=== PATIENT | male | born 1990 | race Caucasian/White ===

== ENCOUNTER 2016-09-12 02:00 | Emergency (ER) | payer MEDICARE ==
[2016-09-12 02:08] VITALS: BP 118/70; PULSE 83; O2SAT 99
[2016-09-12] MEDS ORDERED: MOTRIN 600 MG PO ONE (02:21)
[2016-09-12] MEDS ORDERED: MOTRIN 600 MG ONE (02:26)
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
== END 2016-09-12 03:22 | disposition home or self-care (01) ==
LOC: ED 02:00
DX: S80.01XA Contusion of right knee, initial encounter (principal); V89.2XXA Person injured in unspecified motor-vehicle accident, traffic, initial encounter; M25.561 Pain in right knee; R20.0 Anesthesia of skin
CPT/HCPCS: 73562; 99284; A9270-GY

== ENCOUNTER 2019-07-08 11:05 | Emergency (ER) | payer MEDICARE ==
[2019-07-08 11:37] VITALS: BP 119/79; PULSE 106; O2SAT 97
[2019-07-08] MEDS ORDERED: Rocephin 1000 MG INJ IM ONE (11:41)
--- NOTE | 2019-07-08 11:41 | ERPHSYRPT ---
- History of Present Illness Time Seen by Provider: 07/08/19 11:39 Source: patient Exam Limitations: no limitations Patient Subjective Stated Complaint: was walking down street in [place] and a dog came up to him and was barking and then bit his left lower leg. states the dog belongs to a neighbor and he is unsure if it has had its rabies shots. patient is unwilling at this time to give the dog owners name. Triage Nursing Assessment: ambulated to room per self. skin w/d, color normal. has three puncture wounds to posterior lower left leg. no bleeding noted at this time. Physician History: was walking down street in [place] and a dog came up to him and was barking and then bit his left lower leg. states the dog belongs to a neighbor and he is unsure if it has had its rabies shots. patient is unwilling at this time to give the dog owners name. Timing/Duration: today Severity: mild Associated Symptoms: denies symptoms Allergies/Adverse Reactions: No Known Drug Allergies Allergy (Verified 07/08/19 11:38) Hx Tetanus, Diphtheria Vaccination/Date Given: Yes Hx Influenza Vaccination/Date Given: No Hx Pneumococcal Vaccination/Date Given: No - Review of Systems Constitutional: No Fever, No Chills Eyes: No Symptoms Ears, Nose, & Throat: No Symptoms Respiratory: No Cough, No Dyspnea Cardiac: No Chest Pain, No Edema, No Syncope Abdominal/Gastrointestinal: No Abdominal Pain, No Nausea, No Vomiting, No Diarrhea Genitourinary Symptoms: No Dysuria Musculoskeletal: No Back Pain, No Neck Pain Skin: Other (three prongs of dog bite), No Rash Neurological: No Dizziness, No Focal Weakness, No Sensory Changes Psychological: No Symptoms Endocrine: No Symptoms All Other Systems: Reviewed and Negative - Past Medical History Pertinent Past Medical History: Yes Neurological History: Other ENT History: No Pertinent History Cardiac History: No Pertinent History Respiratory History: No Pertinent History Endocrine Medical History: No Pertinent History Musculoskeletal History: No Pertinent History GI Medical History: No Pertinent History History: No Pertinent History Psycho-Social History: Bipolar, Depression, Other Other Medical History: Hydrocephalus - Past Surgical History Past Surgical History: Yes Neuro Surgical History: No Pertinent History Cardiac: No Pertinent History Respiratory: No Pertinent History Gastrointestinal: No Pertinent History Genitourinary: No Pertinent History Musculoskeletal: Orthopedic Surgery Male Surgical History: No Pertinent History - Social History Smoking Status: Never smoker Exposure to second hand smoke: No Drug Use: none Patient Lives Alone: No Significant Family History: no pertinent family hx - Nursing Vital Signs Nursing Vital Signs: Initial Vital Signs Temperature 98.5 F 07/08/19 11:12 Pulse Rate 106 H 07/08/19 11:12 Respiratory Rate 16 07/08/19 11:12 Blood Pressure 119/79 07/08/19 11:12 O2 Sat by Pulse Oximetry 97 07/08/19 11:12 Pain Scale Pain Intensity 0 - Physical Exam General Appearance: no apparent distress, alert Eye Exam: PERRL/EOMI, eyes nml inspection Ears, Nose, Throat Exam: normal ENT inspection, TMs normal, pharynx normal, moist mucous membranes Neck Exam: normal inspection, non-tender, supple, full range of motion Respiratory Exam: normal breath sounds, lungs clear, No respiratory distress Cardiovascular Exam: regular rate/rhythm, normal heart sounds, normal peripheral pulses Gastrointestinal/Abdomen Exam: soft, normal bowel sounds, No tenderness, No mass Back Exam: normal inspection, normal range of motion, No CVA tenderness, No vertebral tenderness Extremity Exam: normal inspection, normal range of motion, pelvis stable Neurologic Exam: alert, oriented x 3, cooperative, normal mood/affect, nml cerebellar function, nml station & gait, sensation nml, No motor deficits Skin Exam: normal color, warm, dry, No rash Lymphatic Exam: No adenopathy SpO2: 97 - Course Nursing assessment & vital signs reviewed: Yes - Progress Progress: unchanged Counseled pt/family regarding: diagnosis, need for follow-up - Departure Departure Disposition: Home Clinical Impression: Dog bite of left calf Qualifiers: Encounter type: initial encounter Qualified Code(s): S81.852A - Open bite, left lower leg, initial encounter; W54.0XXA - Bitten by dog, initial encounter Condition: Stable Critical Care Time: No Referrals: SILVINO KITCHEN MD [Primary Care Provider] - Instructions: Animal Bites (DC) Additional Instructions: Discharge/Care Plan GLENNA SOLO JR YURI was seen on 07/08/19 in the Emergency Room. The patient was counseled regarding Diagnosis,Lab results, Imaging studies, need for follow up and when to return to the Emergency Room. Prescriptions given: Discharge Note I have spoken with the patient and/or caregivers. I have explained the patient' s condition, diagnosis and treatment plan based on the information available to me at this time. I have answered the patient's and/or caregiver's questions and addressed any concerns. The patient and/or caregivers have as good understanding of the patient's diagnosis, condition and treatment plan as can be expected at this point. The vital signs have been stable. The patient's condition is stable and appropriate for discharge from the emergency department. The patient will pursue further outpatient evaluation with the primary care physician or other designated or consulting physician as outlined in the discharge instructions. The patient and/or caregivers are agreeable to this plan of care and follow-up instructions have been explained in detail. The patient and/or caregivers have received these instruction. The patient/and or caregivers are aware that any significant change in condition or worsening of symptoms should prompt an immediate return to this or the closest emergency department or call 911. Prescriptions: Doxycycline Hyclate 100 mg PO BID #20 tablet
[2019-07-08] MEDS ORDERED: Rocephin 1000 MG INJ ONE (11:53)
[2019-07-08] MEDS ORDERED: XYLOCAINE 1% HCL 20 ML MDV ONE (11:53)
== END 2019-07-08 12:22 | disposition home or self-care (01) ==
LOC: ED 11:05
DX: S81.852A Open bite, left lower leg, initial encounter (principal); W54.0XXA Bitten by dog, initial encounter
CPT/HCPCS: 96372; 99283; J0696

== ENCOUNTER 2021-05-07 21:30 | Emergency (ER) | payer MEDICARE ==
[2021-05-07] MEDS ORDERED: DECADRON 10MG INJ. PO ONE (21:43)
[2021-05-07] MEDS ORDERED: DUONEB 0.5-3 MG/3 ml Neb IH ONE ×2 (21:44→21:49)
[2021-05-07] MEDS ORDERED: DECADRON 10MG INJ. ONE (21:47)
--- NOTE | 2021-05-07 21:59 | ERPHSYRPT ---
- History of Present Illness Time Seen by Provider: 05/07/21 21:40 Source: patient Exam Limitations: no limitations Patient Subjective Stated Complaint: " I have had a cough for the past 3 days, I think I have a fever too. My friend coughed in my face the other day so I'm not sure if I have Covid or not". Triage Nursing Assessment: Pt presents to ER with complaints of cough x 3 days. States cough is dry and intermittent. States believes he has a fever, pt is afebrile at this time. Also complains of runny nose. Pt skin is pink, warm, and dry. Pt respirations are unlabored at this time. Denies abdominal pains, nausea, vomiting, or diarrhea. Pt states sometimes it is hard to breath, respirations are easy and unlabored at this time. Pt is alert and oriented x 3. Physician History: Patient is a 30-year-old male presents to our ED for evaluation of a dry cough and subjective fevers x3 days. Patient currently afebrile. Patient concern for possible Covid. Patient states his friend coughed in his face and thinks he may have had Covid. Patient complains of URI symptomology with rhinorrhea. Patient states she is concerned because he has not vaccinated. Patient states he is not vaccinated because he is concerned with the safety of the Covid vaccination. Patient is otherwise healthy. Patient denies past medical history. He is not using medications at all. 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 No chest pain. No nausea vomiting or diaphoresis. No rash. No diarrhea. No history of PE DVT. No leg or calf pain. Symptoms are mild in intensity. No specific worsening improving factors. Patient voices no other complaints or concerns at this time. Timing/Duration: day(s) (3 days) Severity: mild Modifying Factors: Improves With: nothing Associated Symptoms: fever (Subjective fevers.), No chills, No chest pain, No headaches, No malaise, No rash, No syncope Allergies/Adverse Reactions: No Known Drug Allergies Allergy (Verified 05/07/21 21:47) Hx Tetanus, Diphtheria Vaccination/Date Given: No Hx Influenza Vaccination/Date Given: No Hx Pneumococcal Vaccination/Date Given: No Immunizations Up to Date: No Travel Risk - International Travel Have you traveled outside of the country in past 3 weeks: No - Coronavirus Screening Symptoms: Cough: New Onset, Shortness of Breath, Headaches/Body Aches/Fatigue - Vaccine Status Have you recieved a Covid-19 vaccination: No - Review of Systems Constitutional: No Symptoms, No Fever, No Chills Eyes: No Symptoms Ears, Nose, & Throat: No Symptoms Respiratory: No Symptoms, No Cough, No Dyspnea Cardiac: No Symptoms, No Chest Pain, No Edema, No Syncope Abdominal/Gastrointestinal: No Symptoms, No Abdominal Pain, No Nausea, No Vomiting, No Diarrhea Genitourinary Symptoms: No Symptoms, No Dysuria Musculoskeletal: No Symptoms, No Back Pain, No Neck Pain Skin: No Symptoms, No Rash Neurological: No Symptoms, No Dizziness, No Focal Weakness, No Sensory Changes Psychological: No Symptoms Endocrine: No Symptoms Hematologic/Lymphatic: No Symptoms Immunological/Allergic: No Symptoms All Other Systems: Reviewed and Negative - Past Medical History Pertinent Past Medical History: Yes Neurological History: Other ENT History: No Pertinent History Cardiac History: No Pertinent History Respiratory History: No Pertinent History Endocrine Medical History: No Pertinent History Musculoskeletal History: No Pertinent History GI Medical History: No Pertinent History History: No Pertinent History Psycho-Social History: Bipolar, Depression, Other Other Medical History: Hydrocephalus - Past Surgical History Past Surgical History: Yes Neuro Surgical History: No Pertinent History Cardiac: No Pertinent History Respiratory: No Pertinent History Gastrointestinal: No Pertinent History Genitourinary: No Pertinent History Musculoskeletal: Orthopedic Surgery Male Surgical History: No Pertinent History - Social History Smoking Status: Never smoker Exposure to second hand smoke: No Drug Use: none Patient Lives Alone: Yes Significant Family History: no pertinent family hx - Nursing Vital Signs Nursing Vital Signs: Initial Vital Signs Temperature 96.5 F 05/07/21 21:37 Pulse Rate 106 H 05/07/21 21:37 Respiratory Rate 18 05/07/21 21:37 Blood Pressure 137/92 05/07/21 21:37 O2 Sat by Pulse Oximetry 98 05/07/21 21:37 Pain Scale Pain Intensity 0 - Physical Exam General Appearance: no apparent distress, alert Eye Exam: PERRL/EOMI, eyes nml inspection Ears, Nose, Throat Exam: normal ENT inspection, TMs normal, pharynx normal, moist mucous membranes, other (Rhinorrhea) Neck Exam: normal inspection, non-tender, supple, full range of motion Respiratory Exam: normal breath sounds, lungs clear, airway intact, No respiratory distress Cardiovascular Exam: regular rate/rhythm, normal heart sounds, normal peripheral pulses Gastrointestinal/Abdomen Exam: soft, normal bowel sounds, No tenderness, No mass Back Exam: normal inspection, normal range of motion, No CVA tenderness, No vertebral tenderness Extremity Exam: normal inspection, normal range of motion, pelvis stable, No skylar's sign, No pedal edema, No swelling Neurologic Exam: alert, oriented x 3, cooperative, normal mood/affect, nml cerebellar function, nml station & gait, sensation nml, No motor deficits Skin Exam: normal color, warm, dry, No rash Lymphatic Exam: No adenopathy SpO2 Interpretation: normal SpO2: 98 O2 Delivery: Room Air - Course Nursing assessment & vital signs reviewed: Yes - Radiology Exams Chest X-ray Interpretation: Interpreted by me Ordered Tests: Active Orders 24 hr Category Date Time Status CHEST 1 VIEW (PORTABLE) Stat Exams 05/07/21 21:43 Taken Respiratory Therapy Assessment DAILY RT 05/07/21 21:59 Active Medication Summary Discontinued Medications Generic Name Dose Route Start Last Admin Trade Name Nadeem PRN Reason Stop Dose Admin Albuterol/Ipratropium 3 ml 05/07/21 21:44 05/07/21 21:59 Ipratropium/Albuterol Sulfate 3 Ml Ampul.Neb IH 05/07/21 21:45 3 ml STAT ONE Administration Albuterol/Ipratropium Confirm 05/07/21 21:49 Ipratropium/Albuterol Sulfate 3 Ml Ampul.Neb Administered 05/07/21 21:50 Dose 3 ml IH .STK-MED ONE Dexamethasone Sodium Phosphate 8 mg 05/07/21 21:43 05/07/21 21:48 Dexamethasone Sod Phosphate 10 Mg/Ml PO 05/07/21 21:44 8 mg STAT ONE Administration Dexamethasone Sodium Phosphate Confirm 05/07/21 21:47 Dexamethasone Sod Phosphate 10 Mg/Ml Administered 05/07/21 21:48 Dose 10 mg .ROUTE .STK-MED ONE - Progress Progress: improved Progress Note: Patient reassessed. He feels much better. Patient received a dose of Decadron in our ED. Vital stable. Patient is not hypoxic. Patient states that the breathing treatment helped. I will forward a prescription for albuterol provided. Chest x-ray negative for pneumonia. Outpatient Covid test performed. Results pending. Patient will quarantine until notified otherwise. Patient states is ready for discharge. He voices no other complaints or concerns at this time. Patient agrees to follow-up with his primary care doctor within 48 hours for evaluation. Portions of this note were created with voice recognition technology. There may be grammatical, spelling, punctuation or sound alike errors 05/07/21 22:02 Counseled pt/family regarding: diagnosis, need for follow-up, rad results - Departure Departure Disposition: Home Clinical Impression: Exposure to COVID-19 virus, Cough, URI (upper respiratory infection) Condition: Stable Critical Care Time: No Referrals: SILVINO KITCHEN MD [Primary Care Provider] - Follow up/PCP as directed Prescriptions: Albuterol 8 gm Mdi Hfa [Ventolin Hfa MDI] 8 gm IH Q4H #1 gm
[2021-05-07 22:22] VITALS: BP 138/83; O2SAT 95
[2021-05-07 22:23] VITALS: PULSE 106
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
== END 2021-05-07 22:26 | disposition home or self-care (01) ==
LOC: ED 21:30
DX: J06.9 Acute upper respiratory infection, unspecified (principal); R05.9 Cough, unspecified; Z20.822 Contact with and (suspected) exposure to COVID-19
CPT/HCPCS: 71045; 94640; 99284; U0003; J1100; A9270-GY

== ENCOUNTER 2022-01-23 14:50 | Emergency (ER) | payer MEDICARE ==
--- NOTE | 2022-01-23 14:54 | ERPHSYRPT ---
- History of Present Illness Time Seen by Provider: 01/23/22 14:52 Source: patient Exam Limitations: no limitations Physician History: This is a 31-year-old white male patient of Dr. Kitchen and presents to the emergency department with fever, cough, headache and body aches that started today. Patient's temperature upon arrival into the emergency department is 102.9 F. Patient has not taken any Tylenol or ibuprofen prior to arrival. He states he feels a little dizzy and little nauseated. He has not had any vomiting or diarrhea. He has no abdominal pain. He has no known exposures to individuals similar symptoms or individuals who have been diagnosed with viral illness. 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: none Associated Symptoms: cough, muscle aches, shortness of breath, No sore throat, No stiff neck Allergies/Adverse Reactions: No Known Drug Allergies Allergy (Verified 01/23/22 14:55) Hx Tetanus, Diphtheria Vaccination/Date Given: No Hx Influenza Vaccination/Date Given: No Hx Pneumococcal Vaccination/Date Given: No Travel Risk - International Travel Have you traveled outside of the country in past 3 weeks: No - Coronavirus Screening Are you exhibiting any of the following symptoms?: Yes Symptoms: Fever, Cough: New Onset, Shortness of Breath, Headaches/Body Aches/Fatigue Close contact with a COVID-19 positive Pt in past 14-21 Days: No - Vaccine Status Have you recieved a Covid-19 vaccination: No - Review of Systems Constitutional: Fever, Weakness Eyes: No Symptoms Ears, Nose, & Throat: No Symptoms Respiratory: Cough, Dyspnea Cardiac: No Symptoms Abdominal/Gastrointestinal: Nausea, No Abdominal Pain, No Vomiting, No Diarrhea, No Constipation Genitourinary Symptoms: No Symptoms Musculoskeletal: Arthralgias, Myalgias Skin: No Symptoms Neurological: No Symptoms Psychological: No Symptoms Endocrine: No Symptoms Hematologic/Lymphatic: No Symptoms Immunological/Allergic: No Symptoms All Other Systems: Reviewed and Negative - Past Medical History Pertinent Past Medical History: Yes Neurological History: Other ENT History: No Pertinent History Cardiac History: No Pertinent History Respiratory History: No Pertinent History Endocrine Medical History: No Pertinent History Musculoskeletal History: No Pertinent History GI Medical History: No Pertinent History History: No Pertinent History Psycho-Social History: Bipolar, Depression, Other Other Medical History: Hydrocephalus - Past Surgical History Past Surgical History: Yes Neuro Surgical History: No Pertinent History Cardiac: No Pertinent History Respiratory: No Pertinent History Gastrointestinal: No Pertinent History Genitourinary: No Pertinent History Musculoskeletal: Orthopedic Surgery Male Surgical History: No Pertinent History - Social History Smoking Status: Never smoker Exposure to second hand smoke: No Drug Use: none Patient Lives Alone: Yes Significant Family History: no pertinent family hx - Nursing Vital Signs Nursing Vital Signs: Initial Vital Signs Temperature 102.9 F 01/23/22 14:56 Pulse Rate 117 H 01/23/22 14:56 Respiratory Rate 20 01/23/22 14:56 Blood Pressure 125/85 01/23/22 14:56 O2 Sat by Pulse Oximetry 95 01/23/22 14:56 Pain Scale Pain Intensity 5 - Physical Exam General Appearance: no apparent distress, alert, anxiety Eye Exam: PERRL/EOMI, eyes nml inspection ENT Exam: normal ENT inspection Neck Exam: normal inspection, non-tender, supple, full range of motion, trachea midline Respiratory Exam: normal breath sounds, lungs clear, no respiratory distress, no accessory muscle use, No chest non-tender, No respiratory distress Cardiovascular/Chest Exam: tachycardia Gastrointestinal/Abdominal Exam: soft, non tender, no distention, no mass, no guarding, no ecchymosis, no organomegaly, no pulsatile mass, normal bowel sounds Rectal Exam: not done Extremity Exam: non-tender, normal range of motion, normal inspection Neurologic Exam: alert, oriented x 3, cooperative, table cover folder II-XII nml as tested, normal mood/affect, nml cerebellar function, nml station & gait, sensation nml Skin Exam: normal color, warm, diaphoresis Lymphatic: No adenopathy SpO2 Interpretation: normal O2 Delivery: Room Air - Course Nursing assessment & vital signs reviewed: Yes Ordered Tests: Active Orders 24 hr Category Date Time Status IV Insertion STAT Care 01/23/22 15:01 Active CHEST 1 VIEW (PORTABLE) Stat Exams 01/23/22 15:00 Taken BLOOD CULTURE Stat Lab 01/23/22 15:05 Received Lactic Acid Stat Lab 01/23/22 16:01 Completed [place] Screen Stat Lab 01/23/22 15:05 Completed UA W/RFX CULTURE Stat Lab 01/23/22 15:05 Completed Medication Summary Generic Name Dose Route Start Last Admin Trade Name Freq PRN Reason Stop Dose Admin Sodium Chloride 1,000 mls @ 999 mls/hr 01/23/22 15:40 01/23/22 15:41 Sodium Chloride 0.9% 1000 Ml IV 01/23/22 16:40 999 mls/hr .Q1H1M STA Administration Discontinued Medications Generic Name Dose Route Start Last Admin Trade Name Nadeem PRN Reason Stop Dose Admin Acetaminophen 650 mg 01/23/22 14:56 01/23/22 15:08 Acetaminophen 325 Mg Tablet PO 01/23/22 14:57 650 mg STAT STA Administration Acetaminophen Confirm 01/23/22 15:04 Acetaminophen 325 Mg Tablet Administered 01/23/22 15:05 Dose 650 mg .ROUTE .STK-MED ONE Hydrocodone Bitart/Acetaminophen 10 ml 01/23/22 15:30 Hydrocodone/Acetaminophen 5 Ml Udcup PO 01/23/22 15:31 STAT STA Methylprednisolone Sodium 0 mg 01/23/22 15:30 01/23/22 15:34 Succinate 125 mg/ Sterile IV 01/23/22 15:31 125 mg Water 2 ml STAT ONE Administration Sodium Chloride 1,000 mls @ 999 mls/hr 01/23/22 15:01 01/23/22 16:14 Sodium Chloride 0.9% 1000 Ml IV 01/23/22 16:01 Infused .Q1H1M STA Infusion Sodium Chloride Confirm 01/23/22 15:04 Sodium Chloride 0.9% 1000 Ml Administered 01/23/22 15:05 Dose 1,000 mls @ ud .ROUTE .STK-MED ONE Sodium Chloride Confirm 01/23/22 15:40 Sodium Chloride 0.9% 1000 Ml Administered 01/23/22 15:41 Dose 1,000 mls @ ud .ROUTE .STK-MED ONE Ibuprofen 600 mg 01/23/22 14:56 01/23/22 15:08 Ibuprofen 600 Mg Tablet PO 01/23/22 14:57 600 mg STAT STA Administration Ibuprofen Confirm 01/23/22 15:04 Ibuprofen 600 Mg Tablet Administered 01/23/22 15:05 Dose 600 mg .ROUTE .STK-MED ONE Methylprednisolone Sodium Succinate Confirm 01/23/22 15:34 Methylprednis Sod Succ 125 Mg/2 Ml Vial Administered 01/23/22 15:35 Dose 125 mg .ROUTE .STK-MED ONE Ondansetron HCl 4 mg 01/23/22 15:03 01/23/22 15:08 Ondansetron Hcl 4 Mg/2 Ml Vial IV 01/23/22 15:04 4 mg STAT ONE Administration Ondansetron HCl Confirm 01/23/22 15:04 Ondansetron Hcl 4 Mg/2 Ml Vial Administered 01/23/22 15:05 Dose 4 mg .ROUTE .STK-MED ONE Sterile Water Confirm 01/23/22 15:34 Water For Injection,Sterile 10 Ml Vial Administered 01/23/22 15:35 Dose 10 ml IJ .STK-MED ONE Lab/Rad Data: Laboratory Results 01/23/22 01/23/22 01/23/22 Range/Units 16:01 15:05 15:05 Lactic Acid 1.2 (0.4-2.0) Urinalys Dipstick Clnc MAIN LAB Urine Color YELLOW (YELLOW) Urine Appearance CLEAR (CLEAR) Urine pH 5.5 (5-6) Ur Specific [place] >=1.030 (1.005-1.025) POC Urine Protein Conf NEGATIVE (Negative) Urine Ketones NEGATIVE (NEGATIVE) Urine Nitrite NEGATIVE (NEGATIVE) Urine Bilirubin NEGATIVE (NEGATIVE) Urine Urobilinogen 0.2 (0-1) mg/dL Urine Leukocytes NEGATIVE (NEGATIVE) Urine WBC (Auto) NONE (0-5) /HPF Urine RBC (Auto) NONE (0-2) /HPF U Epithel Cells (Auto) NONE (FEW) /HPF Urine Bacteria (Auto) NONE (NEGATIVE) /HPF Urine RBC NEGATIVE (0-5) Pratik/ul Unidentified Crystals 2-5 (NEGATIVE) /HPF Urine Mucus (Auto) SLIGHT (NEGATIVE) /HPF Ur Culture Indicated? NO Urine Glucose NEGATIVE (NEGATIVE) mg/dL Monoscreen POSITIVE (Negative) Influenza Type A Ag (NEGATIVE) Influenza Type B Ag (NEGATIVE) RSV (PCR) (Negative) SARS-CoV-2 (PCR) (NEGATIVE) Group A Strep Antibody (NEGATIVE) 01/23/22 01/23/22 Range/Units 15:05 15:05 Lactic Acid (0.4-2.0) Urinalys Dipstick Clnc Urine Color (YELLOW) Urine Appearance (CLEAR) Urine pH (5-6) Ur Specific [place] (1.005-1.025) POC Urine Protein Conf (Negative) Urine Ketones (NEGATIVE) Urine Nitrite (NEGATIVE) Urine Bilirubin (NEGATIVE) Urine Urobilinogen (0-1) mg/dL Urine Leukocytes (NEGATIVE) Urine WBC (Auto) (0-5) /HPF Urine RBC (Auto) (0-2) /HPF U Epithel Cells (Auto) (FEW) /HPF Urine Bacteria (Auto) (NEGATIVE) /HPF Urine RBC (0-5) Pratik/ul Unidentified Crystals (NEGATIVE) /HPF Urine Mucus (Auto) (NEGATIVE) /HPF Ur Culture Indicated? Urine Glucose (NEGATIVE) mg/dL Monoscreen (Negative) Influenza Type A Ag NEGATIVE (NEGATIVE) Influenza Type B Ag NEGATIVE (NEGATIVE) RSV (PCR) NEGATIVE (Negative) SARS-CoV-2 (PCR) POSITIVE A (NEGATIVE) Group A Strep Antibody NOT DETECTED (NEGATIVE) - Progress Progress: improved, re-examined Progress Note: 01/23/22 15:30 Chest x-ray shows no acute cardiopulmonary process. Counseled pt/family regarding: lab results, diagnosis, rad results - Departure Departure Disposition: Home Clinical Impression: Fever, Mononucleosis, COVID-19 virus infection Condition: Stable Critical Care Time: No Referrals: SILVINO KITCHEN MD [Primary Care Provider] - Follow up/PCP as directed Additional Instructions: Drink plenty of cool clear liquids. Add ibuprofen 600 mg orally 3 times a day with food for fever control and aches and pains control. Quarantine yourself for the next 7 days. Take your medication as prescribed Prescriptions: Ondansetron ODT 4 MG [Zofran Odt 4 mg] 4 mg PO Q6H PRN PRN #10 tablet PRN Reason: Vomiting Hydrocodone/Acetaminophen [Hydrocodone-Acetamn 7.5-325/15] 10 ml PO Q8H PRN PRN #120 ml MDD 30 ml PRN Reason: Cough Prednisone 10 mg [Deltasone 10 mg] 10 mg PO TID #12 tablet
[2022-01-23] MEDS ORDERED: MOTRIN 600 MG PO STA (14:56)
[2022-01-23] MEDS ORDERED: TYLENOL 325 MG PO STA (14:56)
[2022-01-23] MEDS ORDERED: Sodium Chloride 0.9% 1000 ML 1,000 ML IV STA ×2 (15:01→15:40)
[2022-01-23] MEDS ORDERED: Zofran 4 MG/2 ML VIAL IV ONE (15:03)
[2022-01-23] MEDS ORDERED: MOTRIN 600 MG ONE (15:04)
[2022-01-23] MEDS ORDERED: Sodium Chloride 0.9% 1000 ML 1,000 ML ONE ×2 (15:04→15:40)
[2022-01-23] MEDS ORDERED: Zofran 4 MG/2 ML VIAL ONE (15:04)
[2022-01-23] MEDS ORDERED: TYLENOL 325 MG ONE (15:04)
[2022-01-23] MEDS ORDERED: solu-MEDROL 125 MG, Sterile H2O 10 ml 2 ML IV ONE ×2 (15:30)
[2022-01-23] MEDS ORDERED: HYDROCODONE-ACETAMIN 2.5-108/5 ML SOLUTION PO STA (15:30)
[2022-01-23] MEDS ORDERED: Sterile H2O 10 ml IJ ONE (15:34)
[2022-01-23] MEDS ORDERED: solu-MEDROL ONE (15:34)
[2022-01-23 15:51] LABS: Mucus SLIGHT /HPF (NEGATIVE)
[2022-01-23 16:00] LABS: Appearance CLEAR (CLEAR); Bilirubin NEGATIVE (NEGATIVE); Dipstick done @ ? MAIN LAB; Glucose NEGATIVE (NEGATIVE); Ketones NEGATIVE (NEGATIVE); Nitrite NEGATIVE (NEGATIVE); Ph 5.5 (5-6); Protein,Urine Dip NEGATIVE (Negative); RBC NEGATIVE Ery/ul (0-5); Specific Gravity >=1.030 (1.005-1.025); Urobilinogen 0.2 mg/dL (0-1)
[2022-01-23 16:01] LABS: Urine Cultured Indicated? NO
[2022-01-23 16:04] VITALS: BP 106/62
[2022-01-23 16:05] LABS: INFLUENZA A NEGATIVE (NEGATIVE); INFLUENZA B NEGATIVE (NEGATIVE); RESPIRATORY SYNCTIAL VIRUS NEGATIVE (Negative)
[2022-01-23 16:14] LABS: SARS-CoV-2 Xpert Express POSITIVE (NEGATIVE)
[2022-01-23] MEDS ORDERED: HYDROCODONE-ACETAMIN 2.5-108/5 ML SOLUTION ONE (16:38)
[2022-01-23 17:03] VITALS: PULSE 98; O2SAT 95
--- NOTE | 2022-01-23 21:28 | XRAY ---
Indication: Fever, cough, short of breath. Comparison: May 07, 2021 Portable chest again demonstrates normal heart and lungs. Bony thorax intact. No new/acute findings.
== END 2022-01-23 16:56 | disposition home or self-care (01) ==
LOC: ED 14:50
DX: U07.1 COVID-19 (principal); B27.90 Infectious mononucleosis, unspecified without complication; R50.9 Fever, unspecified; R05.1 Acute cough; R51.9 Headache, unspecified; M79.10 Myalgia, unspecified site; R42 Dizziness and giddiness; R11.0 Nausea; Z79.891 Long term (current) use of opiate analgesic; Z79.52 Long term (current) use of systemic steroids; Z28.310 Unvaccinated for COVID-19
CPT/HCPCS: 0241U; 36000; 36415; 71045; 81015; 83605; 86308; 87040; 87651; 96360; 96374; 96375; 99284; J2405; J2930; A9270-GY

== ENCOUNTER 2022-01-24 09:20 | Emergency (ER) | payer MEDICARE ==
[2022-01-24] MEDS ORDERED: Protonix 40MG Tablet PO ONE (09:45)
[2022-01-24] MEDS ORDERED: GI COCKTAIL 45 ML (Maalox/Lidocaine) PO ONE (09:45)
[2022-01-24] MEDS ORDERED: XYLOCAINE VISCOUS 2% 15 ML CUP ONE (09:48)
[2022-01-24] MEDS ORDERED: Protonix 40MG Tablet ONE (09:48)
[2022-01-24] MEDS ORDERED: MAALOX ES 30 ML UNIT DOSE ONE (09:48)
--- NOTE | 2022-01-24 09:49 | ERPHSYRPT ---
- History of Present Illness Time Seen by Provider: 01/24/22 09:45 Patient Subjective Stated Complaint: C/O "acid reflux". States he has run out of his reflux medication Triage Nursing Assessment: Patient ambulated back to ED without difficulties. Patient noted to be attempting to clear his throat when talking. No SOB noted. Patient is alert and oriented. Physician History: 31 years old male with history of GERD out of his lansoprazole for almost 1 week presented in the ER with having burning epigastric pain with some radiation to retrosternal area. 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 Has nausea but no vomiting. Denies any chest pain otherwise. Patient was diagnosed with COVID 19 and mono yesterday. Palpitations or shortness of breath Timing/Duration: yesterday, constant, gradual onset Quality: burning Abdominal Pain Onset Location: epigastric Pain Radiation: chest Severity of Pain-Max: moderate Severity of Pain-Current: moderate Modifying Factors: Worsens With: eating Associated Symptoms: nausea Previous symptoms: same symptoms as today Allergies/Adverse Reactions: No Known Drug Allergies Allergy (Verified 01/24/22 09:31) Home Medications: Lansoprazole [Prevacid 24Hr] 1 cap PO DAILY 01/24/22 [History] Hx Tetanus, Diphtheria Vaccination/Date Given: Yes Hx Influenza Vaccination/Date Given: No Hx Pneumococcal Vaccination/Date Given: No Immunizations Up to Date: Yes Travel Risk - International Travel Have you traveled outside of the country in past 3 weeks: No - Coronavirus Screening Are you exhibiting any of the following symptoms?: Yes Symptoms: Fever, Cough: New Onset, Headaches/Body Aches/Fatigue - Vaccine Status Have you recieved a Covid-19 vaccination: No - Review of Systems Constitutional: No Symptoms Eyes: No Symptoms Ears, Nose, & Throat: No Symptoms Respiratory: No Symptoms Cardiac: No Symptoms Abdominal/Gastrointestinal: Abdominal Pain, Nausea Genitourinary Symptoms: No Symptoms Musculoskeletal: No Symptoms Skin: No Symptoms Neurological: No Symptoms Endocrine: No Symptoms Hematologic/Lymphatic: No Symptoms - Past Medical History Pertinent Past Medical History: Yes Neurological History: Other ENT History: No Pertinent History Cardiac History: No Pertinent History Respiratory History: Other Endocrine Medical History: No Pertinent History Musculoskeletal History: No Pertinent History GI Medical History: No Pertinent History History: No Pertinent History Psycho-Social History: Bipolar, Depression, Other Male Reproductive Disorders: No Pertinent History Other Medical History: Hydrocephalus, COVID and [place] on 01/23/22 - Past Surgical History Past Surgical History: Yes Neuro Surgical History: No Pertinent History Cardiac: No Pertinent History Respiratory: No Pertinent History Gastrointestinal: No Pertinent History Genitourinary: No Pertinent History Musculoskeletal: Orthopedic Surgery Male Surgical History: No Pertinent History Other Surgical History: Lithotripsy - Social History Smoking Status: Never smoker Exposure to second hand smoke: No Drug Use: none Patient Lives Alone: Yes Significant Family History: no pertinent family hx - Nursing Vital Signs Nursing Vital Signs: Initial Vital Signs Temperature 98.7 F 01/24/22 09:32 Pulse Rate 82 01/24/22 09:32 Respiratory Rate 14 01/24/22 09:32 Blood Pressure 136/81 01/24/22 09:32 O2 Sat by Pulse Oximetry 95 01/24/22 09:32 Pain Scale Pain Intensity 0 - Physical Exam General Appearance: no apparent distress, alert Eye Exam: PERRL/EOMI Ears, Nose, Throat Exam: normal ENT inspection, pharynx normal Neck Exam: normal inspection, non-tender, supple, full range of motion Respiratory Exam: normal breath sounds, lungs clear Cardiovascular Exam: regular rate/rhythm, normal heart sounds Gastrointestinal/Abdomen Exam: soft, normal bowel sounds, tenderness (Mild epigastric) Back Exam: normal inspection Extremity Exam: normal inspection, normal range of motion Neurologic Exam: alert, oriented x 3, cooperative Skin Exam: normal color SpO2 Interpretation: normal SpO2: 95 O2 Delivery: Room Air Ordered Tests: Medication Summary Discontinued Medications Generic Name Dose Route Start Last Admin Trade Name Nadeem PRN Reason Stop Dose Admin Al Hydrox/Mg Hydrox/Simethicone Confirm 01/24/22 09:48 Mag Hydrox/Al Hydrox/Simeth 30 Ml Udcup Administered 01/24/22 09:49 Dose 30 ml .ROUTE .STK-MED ONE Lidocaine HCl Confirm 01/24/22 09:48 Lidocaine Hcl 2% Viscous 15 Ml Udcup Administered 01/24/22 09:49 Dose 15 ml .ROUTE .STK-MED ONE Magnesium Hydroxide 45 ml 01/24/22 09:45 01/24/22 09:50 Mag Hydrx/Alum Hyd/Simeth/Lido 45 Ml Bottle PO 01/24/22 09:46 45 ml STAT ONE Administration Pantoprazole Sodium 40 mg 01/24/22 09:45 01/24/22 09:49 Protonix (Pantoprazole) 40 Mg Tablet PO 01/24/22 09:46 40 mg STAT ONE Administration Pantoprazole Sodium Confirm 01/24/22 09:48 Protonix (Pantoprazole) 40 Mg Tablet Administered 01/24/22 09:49 Dose 40 mg .ROUTE .STK-MED ONE - Progress Progress: improved Progress Note: 01/24/22 09:47 Is given GI cocktail and Protonix, feeling better, sent a prescription of lansoprazole to the pharmacy. Symptoms are very typical of GERD, do not think needs any other work-up and is stable for discharge. Counseled pt/family regarding: diagnosis, need for follow-up - Departure Departure Disposition: Home Clinical Impression: GERD with esophagitis Condition: Stable Critical Care Time: No Referrals: SILVINO KITCHEN MD [Primary Care Provider] - Follow up/PCP as directed (1-2 days for reevaluation) Instructions: Acid Reflux and GERD in Adults (DC) Additional Instructions: Do not take ibuprofen/NSAIDs. Take your entire reflux medications regularly. Follow-up with primary care for reevaluation. Return to ER for worsening pain or if having nausea vomiting/dark stool etc. Prescriptions: Lansoprazole [Prevacid 24Hr] 15 mg PO DAILY 30 Days #30 cap
[2022-01-24 10:23] VITALS: BP 115/76; PULSE 78
[2022-01-24 22:47] VITALS: O2SAT 95
== END 2022-01-24 10:24 | disposition home or self-care (01) ==
LOC: ED 09:20
DX: K21.00 Gastro-esophageal reflux disease with esophagitis, without bleeding (principal); R11.0 Nausea; R10.13 Epigastric pain; Z28.310 Unvaccinated for COVID-19
CPT/HCPCS: 99282; A9270-GY

== ENCOUNTER 2024-02-15 10:00 | Day surgery (SDC) | payer MEDICARE ==
[2024-02-15] MEDS ORDERED: Xylocaine-Mpf 2% 5 Ml Vial IJ ONE (10:01)
[2024-02-15] MEDS ORDERED: DIPRIVAN 200 MG/20 ML IV ONE (12:10)
[2024-02-15] MEDS ORDERED: Lactated Ringers 1,000 ML IV ONE (14:47)
--- NOTE | 2024-02-15 15:01 | XRAY ---
4 seconds of fluoroscopy was used in surgery for an attempted bilateral L4-S1 MBB. The procedure was aborted due to the patient vomiting.
== END 2024-02-15 12:45 | disposition home or self-care (01) ==
LOC: SDC-PAIN 10:00
PROVIDERS: ATTEND Psychiatry & Neurology Pain Medicine
DX: Z53.8 Procedure and treatment not carried out for other reasons (principal); R11.2 Nausea with vomiting, unspecified
CPT/HCPCS: 77002; J2704

== ENCOUNTER 2024-04-25 11:14 | Day surgery (SDC) | payer MEDICARE ==
[2024-04-25] MEDS ORDERED: Xylocaine-Mpf 2% 5 Ml Vial IJ ONE (11:15)
[2024-04-25] MEDS ORDERED: Pepcid 20 MG VIAL IV ONE (12:14)
[2024-04-25] MEDS ORDERED: Zofran 4 MG/2 ML VIAL ONE (12:14)
[2024-04-25] MEDS ORDERED: Reglan 10 MG/2 ML ONE (12:14)
[2024-04-25] MEDS ORDERED: DIPRIVAN 200 MG/20 ML IV ONE ×2 (13:29→13:32)
--- NOTE | 2024-04-25 15:00 | XRAY ---
Indication: Bilateral L4-S1 MBB. Intraoperative fluoroscopy provided for 14 seconds. Single digital spot image submitted for interpretation demonstrates posterior needle tips projecting over the expected left and right L4-S1 nerve roots. Correlate with intraoperative findings/report.
--- NOTE | 2024-04-25 17:05 | XRAY ---
14 seconds of fluoroscopy was used in surgery for a bilateral L4-S1 MBB.
== END 2024-04-25 14:09 | disposition home or self-care (01) ==
LOC: SDC-PAIN 11:14
PROVIDERS: ATTEND Psychiatry & Neurology Pain Medicine
DX: M47.816 Spondylosis without myelopathy or radiculopathy, lumbar region (principal)
CPT/HCPCS: 64493; 64494; 72020; 77002; J2405; J2704